=== PATIENT | female | born 2000 | race Caucasian/White ===

== ENCOUNTER 2019-07-20 21:58 | Emergency (ER) | payer BC ==
[2019-07-20] MEDS ORDERED: Acetaminophen 500 MG TAB ONE (22:47)
[2019-07-20 23:59] LABS: Bilirubin Negative (Negative); Blood, Urine Negative (Negative); Clarity Clear (Clear); Glucose, Urine (Dipstick) Normal (Negative); Leukocyte 25 Leu/uL (Negative); Nitrite Negative (Negative); Protein, Urine (Dipstick) Negative (Neg-Trace); RBC/HPF 0-3 HPF (0-3); Urobilinogen Normal mg/dL (Less than 2)
[2019-07-21 00:02] LABS: Bacteria/HPF 1+ HPF (None Seen)
[2019-07-21 00:03] LABS: Pregnancy Test - Urine (BHCG) Negative (Negative); Pregu Control Background? CLEAR/WHITE (CLR/WHITE); Pregu Control Bar Appear? YES (CONTROL BAR); Specific Gravity 1.006 (1.002-1.036)
[2019-07-21] MEDS ORDERED: Ibuprofen 200 MG TAB ONE ×3 (00:11→00:14)
--- NOTE | 2019-07-21 07:18 | RAD ---
2 VIEW CHEST: Date: 07/20/19 HISTORY: Flu-like signs and symptoms. Fever and cough. FINDINGS: There is parenchymal opacity seen within the anterior aspect of the right upper lobe overlying the ri ght hilar region, worrisome for pneumonia. The left lung is clear. Cardiac silhouette and pulmonary v asculature are within normal limits. Osseous structures are intact. IMPRESSION: Right upper lobe pneumonia. Follow-up to complete resolution is recommended. POS: OFF
== END 2019-07-21 00:53 | disposition home or self-care (01) ==
LOC: ERS 21:58
DX: J18.1 Lobar pneumonia, unspecified organism (principal); J45.909 Unspecified asthma, uncomplicated
CPT/HCPCS: 71046; 81003; 81015; 81025; 87081; 87430; 87804; 96360

== ENCOUNTER 2020-06-27 03:04 | Observation (INO) | payer BC, OTHER ==
[2020-06-27 03:38] LABS: #Basophils 0.1 thou/uL (0.0-0.2); #Eosinphils 0.1 thou/uL (0.0-0.7); #Lymphocytes 2.6 thou/uL (1.20-3.40); #Monocytes 0.8 thou/uL (0.11-0.59); #Neutrophils 5.5 thou/uL (1.40-6.50); %Basophils 0.8 % (0.0-1.0); %Eosinophils 1.5 % (0.0-10.0); %Lymphocytes 28.3 % (28.0-48.0); %Neutrophils 60.3 % (31.0-61.0); Hemoglobin 14.9 g/dL (12.0-16.0); Mean Corpuscular Hemoglobin 29.9 pg (25.0-35.0); Mean Corpuscular Volume 87.7 fL (78.0-98.0); Mean Platelet Volume 8.8 fL (7.4-10.4); Platelet Count 209 thou/uL (130-400); RBC Distribution Width 11.2 % (11.5-14.5); Red Blood Cell (RBC) Count 4.99 mill/uL (4.00-5.20); White Blood Cell (WBC) Count 9.1 thou/uL (4.8-10.8)
[2020-06-27 03:44] LABS: BHCG - Serum Negative (NEGATIVE); Pregs Control Background? CLEAR/WHITE (CLR/WHITE); Pregs Control Bar Appear? YES (CONTROL BAR)
[2020-06-27 03:54] LABS: Bilirubin Negative (Negative); Blood, Urine Negative (Negative); Clarity Clear (Clear); Glucose, Urine (Dipstick) Normal (Negative); Ketone, Urine Negative (Negative); Leukocyte 25 Leu/uL (Negative); Nitrite Negative (Negative); Protein, Urine (Dipstick) 10 mg/dL (Neg-Trace); RBC/HPF 0-3 HPF (0-3); Specific Gravity, Urine 1.031 (1.002-1.036); Urobilinogen Normal mg/dL (Less than 2)
[2020-06-27 03:56] LABS: Bacteria/HPF 1+ HPF (None Seen)
[2020-06-27 04:03] LABS: ALT (SGPT) 16 U/L (8-55); AST (SGOT) 21 U/L (5-34); Albumin 4.5 g/dL (3.5-5.0); Alkaline Phosphatase 94 U/L (40-100); Anion Gap 14 mmol/L (10-20); BUN (Urea Nitrogen) 14 mg/dL (7.0-18.7); Bilirubin, Total 0.5 mg/dL (0.2-1.2); Calc. Creatinine Clearance 0 mL/min (70-130); Calcium 9.3 mg/dL (7.8-10.44); Carbon Dioxide 25 mmol/L (22-29); Chloride 105 mmol/L (98-107); Estimated GFR-MDRD 81; Globulin 3.1 g/dL (2.4-3.5); Glucose 103 mg/dL (70-105); Lipase 36 U/L (8-78); Potassium 3.6 mmol/L (3.5-5.1); Protein, Total 7.6 g/dL (6.0-8.3); Sodium 140 mmol/L (136-145)
[2020-06-27] MEDS ORDERED: Sodium Chloride 0.9% 1,000 ML IV SCH (07:30)
--- NOTE | 2020-06-27 08:21 | CT ---
PRELIMINARY REPORT/[facility]/EMERGENCY AFTER HOURS PROCEDURE: EXAM: CT Abdomen and Pelvis with Intravenous Contrast CLINICAL HISTORY: PT REPORTS RLQ PAIN ONSET 1 DAY AGO. SHE DENIES N/V/D. TECHNIQUE: Axial computed tomography images of the abdomen and pelvis with intravenous contrast. CONTRAST: With; ISOVUE 370,100mL COMPARISON: None provided. FINDINGS: LUNG BASES: No basilar airspace consolidation or pleural effusion. LIVER: Unremarkable. GALLBLADDER AND BILE DUCTS: Unremarkable. No calcified stone. No ductal dilation. PANCREAS: Unremarkable. SPLEEN: Unremarkable. ADRENAL GLANDS: Unremarkable. KIDNEYS, URETERS, AND BLADDER: Left kidney is absent. Right kidney is unremarkable. No hydronephrosis or nephrolithiasis. No ureter al or bladder calculi. STOMACH AND BOWEL: No obstruction. No wall thickening. No CT evidence of colitis or acute diverticulitis. APPENDIX: Normal appendix PERITONEUM: No free fluid. No free air. LYMPH NODES: No lymphadenopathy. REPRODUCTIVE: Moderately complex cystic mass extending out of the pelvis measuring roughly 16 x 11 x 16 cm presumab ly ovarian in nature, probably from the right ovary. Along the right lateral aspect of the lesion pr ominent septations with what may be a mural nodule. Small amount of free fluid in the pelvis and zachariah und the spleen. Prominent uterine anomaly may be septated or didelphys. VASCULATURE: No aortic aneurysm. BONES: No fracture or suspicious osseous abnormality. ABDOMINAL WALL AND SOFT TISSUES: Unremarkable. IMPRESSION: Complex cystic ovarian mass. IF additional imaging is needed, MRI is recommended. Absent left kidne y. Uterine anomaly. ELECTRONICALLY SIGNED BY: Quinn Amador MD Jun 27, 2020 4:10:16 AM CDT This report is intended for review by the ordering physician only, in accordance of law. If you recei ve this report in error, please call [facility] at [phone]. FINAL REPORT EMERGENCY AFTER HOURS CT ABDOMEN AND PELVIS PERFORMED WITH IV CONTRAST ENHANCEMENT: Date: 06/27/2020 HISTORY: Right lower quadrant pain. FINDINGS: The lung bases are clear of any infiltrative process. The liver and spleen show no focal findings. There is some trace fluid adjacent to the posterior gonzález in of the upper spleen. The pancreas and gallbladder regions are unremarkable. The right and left adrenal glands, and right kidney are normal. Left kidney is absent. There is no si gnificant periaortic or mesenteric adenopathy. CT of pelvis was performed with contrast enhancement. A large complex cystic ovarian lesion is presen t, measures approximately 13.0 cm AP x 16.0 cm transverse x 19.0 cm in superior to inferior dimension . It has some thick-walled septal changes along the right side of this. I believe this to most likely be of right adnexal origin. Left ovary shows follicles. There is a uterine anomaly with bicornuate a ppearing uterus. 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 Trace free fluid is noted. IMPRESSION: 1. Large complex cystic mass that has internal septations and suggestion of some mural nodularity, i s probably of right ovarian origin. There is trace ascites seen associated with this. Further evaluat ion with MRI may be beneficial in assessment. 2. 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 Report in agreement with the preliminary report issued by [facility]. POS: LATRICE
[2020-06-27] MEDS ORDERED: FLU VACC QS2020-21(6MOS UP)/PF 60 MCG/0.5 ML SYRINGE IM ONE (09:00)
--- NOTE | 2020-06-27 10:07 | PDOC.BPN ---
- Brief Progress Note Encounter Date: 06/27/20 Encounter Time: 10:00 Patient seen at bedside. See dictation
[2020-06-27 11:42] VITALS: BP 115/57; TEMP 98.4
[2020-06-27] MEDS ORDERED: Ketorolac Tromethamine 10 MG TAB PO SCH (12:00)
--- NOTE | 2020-06-27 12:02 | MRI ---
MRI PELVIS WITH AND WITHOUT CONTRAST: HISTORY: Pelvic pain and mass. COMPARISON: CT examination from same day. FINDINGS: Uterus: There is incomplete fusion of the fundal myometrium with 2 symmetric uterine horns with a maylin ft the divergent symmetric horns. The septum extends to the level of the cervix and there are 2 separate cervices. This is a complete IV-A malignant duct anomaly, a bicornuate bicollis anom kandy. Soft tissues: Partial lumbarization of S1 with incomplete fusion of the right S1 transverse process with S2. There is an abnormal mass which appears to originate from the right adnexa which is predominantly cys tic in nature with a craniocaudal length of 20 cm, transverse dimension of 16 cm and an AP dimension of 10 cm with abnormal enhancing papillary projections within the mass. This is highly suggestive of a malignant process, even given the patient's young age. Numerous left-sided ovarian follicles, gre ater than 30. On the anterior right lateral side of the prominently cystic mass is a solid relatively nonenhancing T1 mildly hyperintense and T2 hypointense mass suggesting an endometrioma measuring 4 cm in transvers e, AP dimension of 1.8 cm and a craniocaudal dimension of 3.3 cm. In the pelvic cul-de-sac are 2 ovo id masses which are T2 and T1 isointense to fat may reflect fatty masses felt to reflect enlarged epi ploic appendages surrounded by a small volume of fluid. These follow fat signal on T1 and T2 sequenc es and do not have any significant internal enhancement. No retroperitoneal or periaortic adenopathy. A large pelvic mass does have some mass effect upon the IVC. IMPRESSION: 1. Large predominately cystic mass in the pelvis, likely extending from the adnexa extending into th e abdomen as described with abnormal stalk-like peripheral papillary projections which do have research program intern al enhancement indicative of malignancy. Gynecologic consultation is advised. 2. Type IV-A complete bicornuate uterus, bicornuate bicollis. 3. Small volume free fluid in the pelvis. 4. Small T2 hypointense and T1 hyperintense mass involving the anterior and right side of the adnexa l mass as described, likely endometrioma. 5. Absent left kidney. 6. Partial lumbarization of S1. 7. Numerous follicles throughout the left ovary which is mildly enlarged. 8. Low-serge inflammatory stranding along the right lower hemiabdomen may reflect hemorrhage from th e right-sided endometrioma. POS: AH
--- NOTE | 2020-06-27 12:24 | PDOC.BPN ---
- Brief Progress Note Encounter Date: 06/27/20 Encounter Time: 12:10 MRI note I have reviewed the MRI with Izabella, the patient's nurse.The MR shows absent left kidney and bicornuate uterus. Mass is largest 20cm and "indicative of CA". I have called Dr Ronit Jones's office and spoken to the home health care case manager. They will schedule follow up. Drawing CA125 and CEA, LDH, BHCG now
[2020-06-27] MEDS ORDERED: Iopamidol-370 76% 500 ML 1 ML ONE (12:44)
--- NOTE | 2020-06-27 13:06 | PRG ---
DATE OF SERVICE: The time is now which is 1245 hours. Please label this as bedside consultation. In brief, I was present in the patient's room, along with Izabella, the patient's nurse, as I explained to the patient and her partner (patient allowed partner to be in the room) her CT and MR results. 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 I also discussed with her, her severe bicornuate uterus. Most importantly, I discussed with her the abnormal appearance of her 20 cm adnexal cyst. I also discussed with her that Ronit Jones is aware of her status and they will contact her on her cell phone. I did confirm that the cell phone is hers and the number is correct. We will print out the requested information which is the MRI and the CT scan. I have also drawn tumor markers and I put those in as stat, so we can try to get these printed for her for her appointment. Job ID: [id number]
--- NOTE | 2020-06-27 13:06 | DIS ---
DATE OF ADMISSION: 06/27/2020 DATE OF DISCHARGE: 06/27/2020 The patient was admitted by Crys Hanna. The patient was sent home by me, Dr. Hicks. PRINCIPAL DIAGNOSES: 1. Pelvic pain. 2. Ovarian mass (right side). PRINCIPAL PROCEDURES: Includes a CT scan, pelvic ultrasound, and MRI. HOSPITAL COURSE: In brief, this patient was admitted with Dr. Crys Hanna on-call and the ER, who advised just a couple of hours of inpatient observation for this pelvic pain. This patient was found to have an 8 cm ovarian mass on the right. Although, she was clinically stable. The plan was we may just keep her for observation for a few hours to see if there was any deterioration in her status. I evaluated the patient this morning at roughly 9:30 at bedside. Her pain was improved and there was no acute clinical evidence of adnexal torsion. She was clinically stable. The plan was to send her home or she can follow this up as an outpatient. We did stress to her that she needs surgical evaluation of this and that torsion and/or rupture or possible risks, but they usually are low risk if she is clinically stable now. We did review with her the operating ability of torsion as a possibility. She will follow up with [facility] to further manage this mass. The plan was to send this patient home at noon after tolerating a regular diet. Job ID: [id number]
[2020-06-27] MEDS ORDERED: Magnevist 469MG/ML 20 ML VIAL ONE (13:07)
[2020-06-27 13:24] LABS: HCG, Total Quant Less than 1.20 mIU/mL (See Ranges)
[2020-06-27 13:29] LABS: CEA, Serum Less than 0.65 ng/mL (< or = 5.0)
[2020-06-27] MEDS ORDERED: Acetaminophen/Codeine 30-300mg Tablet PO PRN (13:30)
--- NOTE | 2020-06-27 13:50 | PDOC.BPN ---
- Brief Progress Note Encounter Date: 06/27/20 Encounter Time: 13:50 CA 125 and LDH both very abnormal. WE will send copies.
[2020-06-28 11:17] LABS: SARS-CoV-2 MS2 Positive; SARS-CoV-2 N Gene Negative; SARS-CoV-2 S Gene Negative; SARS-CoV-2 by NAA Not Detected (NotDetected); SARS-CoV-2 orf1ab Negative
== END 2020-06-27 14:50 | disposition home or self-care (01) ==
LOC: ERS 03:04 → 3SE 06:57
PROVIDERS: ADMIT Obstetrics & Gynecology; ATTEND Obstetrics & Gynecology
DX: N83.201 Unspecified ovarian cyst, right side (principal); Q51.3 Bicornate uterus; Q60.0 Renal agenesis, unilateral; Z88.8 Allergy status to other drugs, medicaments and biological substances; Z20.828 Contact with and (suspected) exposure to other viral communicable diseases
CPT/HCPCS: 36415; 72197; 74177; 80053; 81003; 81015; 82378; 83615; 83690; 84702; 84703; 85025; 86304; 87635; 96360; 96361; A9579; G0378; Q9967; U0003

== ENCOUNTER 2023-09-09 09:01 | Outpatient (CLI) | payer BC | END 2023-09-09 09:02 | disposition home or self-care (01) | LOC: SCSMRI 09:01 | PROVIDERS: ATTEND Obstetrics & Gynecology Gynecologic Oncology | DX: C56.9 Malignant neoplasm of unspecified ovary (principal); R19.00 Intra-abdominal and pelvic swelling, mass and lump, unspecified site; Q51.3 Bicornate uterus | CPT/HCPCS: 72197 ==